=== PATIENT | female | born 1960 | race Caucasian/White ===

== ENCOUNTER 2022-09-14 12:23 | Emergency (ER) | payer MEDICARE, MEDICAID ==
[2022-09-14 13:32] LABS: APPEARANCE,URINE CLEAR; BILIRUBIN,URINE NEGATIVE (NEGATIVE); COLOR,URINE YELLOW; GLUCOSE,URINE NEGATIVE (NEGATIVE); KETONES,URINE NEGATIVE (NEGATIVE); LEUKOCYTE ESTERASE,URINE NEGATIVE (NEGATIVE); NITRITE,URINE NEGATIVE (NEGATIVE); OCCULT BLOOD,URINE NEGATIVE (NEGATIVE); PH,URINE 5.5 (5.0-8.0); PROTEIN,URINE NEGATIVE (NEGATIVE); UROBILINOGEN,URINE 0.2 EU/dL (<2.0)
[2022-09-14 13:41] LABS: HEMATOCRIT 33.7 % (36.0-46.0); HEMOGLOBIN 12.1 g/dL (12.0-16.0); MEAN CORPUSCULAR HEMOGLOBIN 35.3 pg (27.0-32.0); MEAN CORPUSCULAR HGB CONC 35.9 g/dL (31.0-37.0); MEAN CORPUSCULAR VOLUME 98.3 fL (80.0-98.0); RED BLOOD CELL COUNT 3.43 M/uL (4.30-5.90); WHITE BLOOD CELL COUNT,WBC 2.64 K/uL (4.0-11.0)
[2022-09-14 13:50] LABS: BACTERIA,URINE RARE (NEGATIVE); EPITHELIAL CELLS,URINE MODERATE (NONE-FEW); RBC,URINE 0-1 (0-2/HPF); WBC,URINE 0-2 (0-5/HPF)
[2022-09-14 13:54] LABS: PLATELET COUNT,PLT 59 K/uL (150-400)
[2022-09-14 13:57] LABS: A/G RATIO 1.3 (0.9-1.6); ALBUMIN 3.7 g/dL (3.4-5.0); BILIRUBIN TOTAL 0.5 mg/dL (0.2-1.0); CALCIUM 8.8 mg/dL (8.5-10.1); CARBON DIOXIDE,CO2 23.4 mmol/L (21.0-32.0); CREATININE 0.9 mg/dL (0.6-1.0); EST CRCL DRUG DOSING (CG) 53.61 mL/min; MAGNESIUM 1.6 mg/dL (1.8-2.4); PROTEIN TOTAL,TP 6.5 g/dL (6.4-8.2)
[2022-09-14 13:59] LABS: BLAST ABSOLUTE MAN 0; BLASTS PERCENT MAN 1 %; LYMPHOCYTES ABSOLUTE MAN 1.1 (0.6-2.4); LYMPHOCYTES PERCENT MAN 43 % (16.0-40.0); MONOCYTES ABSOLUTE MAN 0.1 (0.0-0.8); MONOCYTES PERCENT MAN 5 % (0.0-15.0); NRBC MANUAL 2 %; POIKILOCYTOSIS 2+ MODERATE; SEG NEUTROPHILS ABSOLUTE MAN 1.3 (1.4-5.7); SEG NEUTROPHILS PERCENT MAN 51 % (48.0-80.0)
[2022-09-14 14:00] LABS: OVALOCYTES 1+ SLIGHT; SCHISTOCYTES 1+ SLIGHT; TEARDROP CELLS FEW
[2022-09-14 14:01] LABS: PLATELET COUNT ESTIMATE DECREASED
[2022-09-14 14:06] LABS: CORONAVIRUS COVID-19 NAA NEGATIVE (NEGATIVE); INFLUENZA A NAA NEGATIVE (NEGATIVE); INFLUENZA B NAA NEGATIVE (NEGATIVE); RESPIRATORY SYNCYTIAL VIR NAA NEGATIVE (NEGATIVE)
[2022-09-14 14:51] LABS: TSH ULTRASENSITIVE 3.2 uIU/mL (0.36-3.74)
== END 2022-09-14 15:20 | disposition home or self-care (01) ==
LOC: MW.ED 12:23
DX: R53.83 Other fatigue (principal); Z88.0 Allergy status to penicillin; Z88.1 Allergy status to other antibiotic agents; Z88.8 Allergy status to other drugs, medicaments and biological substances; Z79.899 Other long term (current) drug therapy; Z20.822 Contact with and (suspected) exposure to COVID-19
CPT/HCPCS: 0241U; 36415; 71045; 80053; 81001; 83605; 83735; 84443; 84484; 85007; 85027; 99284

== ENCOUNTER 2022-12-18 18:30 | Emergency (ER) | payer MEDICARE, MEDICAID ==
[2022-12-18] MEDS ORDERED: Sodium Chloride 0.9% 10 ML Syringe FLUSH PRN (20:06)
[2022-12-18] MEDS ORDERED: Sodium Chloride 0.9% 1,000 ML IV ONE (20:06)
[2022-12-18] MEDS ORDERED: Sodium Chloride 0.9% 2.5 ML Syringe FLUSH PRN (20:06)
[2022-12-18 21:17] LABS: HEMATOCRIT 23.8 % (36.0-46.0); HEMOGLOBIN 7.9 g/dL (12.0-16.0); MEAN CORPUSCULAR HEMOGLOBIN 31.5 pg (27.0-32.0); MEAN CORPUSCULAR HGB CONC 33.2 g/dL (31.0-37.0); MEAN CORPUSCULAR VOLUME 94.8 fL (80.0-98.0); NRBC ABSOLUTE 1 K/uL; PLATELET COUNT,PLT 18 K/uL (150-400); RED BLOOD CELL COUNT 2.51 M/uL (4.30-5.90); WHITE BLOOD CELL COUNT,WBC 2.21 K/uL (4.0-11.0)
[2022-12-18 21:46] LABS: A/G RATIO 0.8 (0.9-1.6); ALBUMIN 2.6 g/dL (3.4-5.0); BILIRUBIN TOTAL 0.5 mg/dL (0.2-1.0); CALCIUM 8.1 mg/dL (8.5-10.1); CARBON DIOXIDE,CO2 26.3 mmol/L (21.0-32.0); CREATININE 1.1 mg/dL (0.6-1.0); EST CRCL DRUG DOSING (CG) 41.94 mL/min; POTASSIUM,K 3.7 mmol/L (3.5-5.1); PROTEIN TOTAL,TP 5.9 g/dL (6.4-8.2)
[2022-12-18 22:24] LABS: APPEARANCE,URINE CLEAR; BILIRUBIN,URINE NEGATIVE (NEGATIVE); COLOR,URINE YELLOW; GLUCOSE,URINE NEGATIVE (NEGATIVE); KETONES,URINE NEGATIVE (NEGATIVE); LEUKOCYTE ESTERASE,URINE SMALL (NEGATIVE); NITRITE,URINE NEGATIVE (NEGATIVE); OCCULT BLOOD,URINE SMALL (NEGATIVE); PH,URINE 6.5 (5.0-8.0); PROTEIN,URINE NEGATIVE (NEGATIVE); UROBILINOGEN,URINE 0.2 EU/dL (<2.0)
[2022-12-18 22:38] LABS: BACTERIA,URINE FEW (NEGATIVE); EPITHELIAL CELLS,URINE RARE (NONE-FEW); RBC,URINE 0-1 (0-2/HPF); WBC,URINE 0-1 (0-5/HPF)
[2022-12-18 22:41] LABS: METAMYELOCYTE ABSOLUTE MAN 0; METAMYELOCYTE PERCENT MAN 1 %; SEG NEUTROPHILS ABSOLUTE MAN 0.8 (1.4-5.7)
[2022-12-18 22:44] LABS: ANISOCYTOSIS 1+
[2022-12-18 22:45] LABS: PLATELET COUNT ESTIMATE DECREASED
[2022-12-18 22:48] LABS: ELLIPTOCYTES 1+ SLIGHT; POIKILOCYTOSIS 2+ MODERATE
[2022-12-18 22:49] LABS: SCHISTOCYTES 1+ SLIGHT
[2022-12-18 22:50] LABS: TEARDROP CELLS 1+ SLIGHT
[2022-12-18 22:57] LABS: LYMPHOCYTES PERCENT MAN 44 % (16.0-40.0); MONOCYTES ABSOLUTE MAN 0.5 (0.0-0.8); MONOCYTES PERCENT MAN 21 % (0.0-15.0); SEG NEUTROPHILS PERCENT MAN 34 % (48.0-80.0)
== END 2022-12-18 23:45 | disposition home or self-care (01) ==
LOC: MW.ED 18:30
DX: D46.9 Myelodysplastic syndrome, unspecified (principal); D64.9 Anemia, unspecified; D69.6 Thrombocytopenia, unspecified; E78.00 Pure hypercholesterolemia, unspecified; Z88.1 Allergy status to other antibiotic agents; I10 Essential (primary) hypertension; Z88.0 Allergy status to penicillin; Z88.8 Allergy status to other drugs, medicaments and biological substances; J44.9 Chronic obstructive pulmonary disease, unspecified; Z20.822 Contact with and (suspected) exposure to COVID-19
CPT/HCPCS: 36415; 71046; 80053; 81001; 83605; 85025; 87040; 87086; 99283; J3490; J7030; U0002

== ENCOUNTER 2022-12-20 00:19 | Inpatient (IN) | payer MEDICARE, MEDICAID ==
[2022-12-20] MEDS ORDERED: Sodium Chloride 0.9% 2.5 ML Syringe FLUSH PRN (01:31)
[2022-12-20] MEDS ORDERED: Sodium Chloride 0.9% 1,000 ML IV ONE (01:31)
[2022-12-20] MEDS ORDERED: Sodium Chloride 0.9% 10 ML Syringe FLUSH PRN (01:31)
[2022-12-20] MEDS ORDERED: Acetaminophen 500 MG Tab PO ONE (02:28)
[2022-12-20 02:32] LABS: HEMATOCRIT 25.1 % (36.0-46.0); HEMOGLOBIN 8.5 g/dL (12.0-16.0); MEAN CORPUSCULAR HGB CONC 33.9 g/dL (31.0-37.0); MEAN CORPUSCULAR VOLUME 94.4 fL (80.0-98.0); NRBC ABSOLUTE 1 K/uL; NRBC PERCENT 8.6 /100WBC; PLATELET COUNT,PLT 17 K/uL (150-400); RED BLOOD CELL COUNT 2.66 M/uL (4.30-5.90); WHITE BLOOD CELL COUNT,WBC 2.26 K/uL (4.0-11.0)
[2022-12-20 02:51] LABS: CORONAVIRUS COVID-19 NAA NEGATIVE (NEGATIVE); INFLUENZA A NAA NEGATIVE (NEGATIVE); INFLUENZA B NAA NEGATIVE (NEGATIVE); RESPIRATORY SYNCYTIAL VIR NAA NEGATIVE (NEGATIVE)
[2022-12-20 03:04] LABS: A/G RATIO 0.8 (0.9-1.6); ALBUMIN 2.8 g/dL (3.4-5.0); BILIRUBIN TOTAL 0.8 mg/dL (0.2-1.0); CALCIUM 8.2 mg/dL (8.5-10.1); CARBON DIOXIDE,CO2 23.4 mmol/L (21.0-32.0); EST CRCL DRUG DOSING (CG) 46.13 mL/min; POTASSIUM,K 3.9 mmol/L (3.5-5.1); PROTEIN TOTAL,TP 6.2 g/dL (6.4-8.2)
[2022-12-20] MEDS ORDERED: Cefepime 2 GM Vial IVPUSH ONE (03:08)
[2022-12-20 03:17] LABS: LACTIC ACID 0.9 mmol/L (0.4-2.0)
[2022-12-20 03:29] LABS: BAND ABSOLUTE MAN 0; BAND PERCENT MAN 2 %; LYMPHOCYTES % ATYPICAL MANUAL 2; LYMPHOCYTES PERCENT MAN 46 % (16.0-40.0); METAMYELOCYTE ABSOLUTE MAN 0; METAMYELOCYTE PERCENT MAN 2 %; MONOCYTES ABSOLUTE MAN 0.3 (0.0-0.8); MONOCYTES PERCENT MAN 14 % (0.0-15.0); SEG NEUTROPHILS ABSOLUTE MAN 0.8 (1.4-5.7); SEG NEUTROPHILS PERCENT MAN 34 % (48.0-80.0)
[2022-12-20 03:30] LABS: ANISOCYTOSIS 1+; POIKILOCYTOSIS 2+ MODERATE; SCHISTOCYTES 1+ SLIGHT
[2022-12-20 03:31] LABS: ELLIPTOCYTES 1+ SLIGHT; PLATELET COUNT ESTIMATE MARKED DEC; TEARDROP CELLS 1+ SLIGHT
[2022-12-20 04:13] LABS: APPEARANCE,URINE SLT CLOUDY; BILIRUBIN,URINE NEGATIVE (NEGATIVE); COLOR,URINE YELLOW; GLUCOSE,URINE NEGATIVE (NEGATIVE); KETONES,URINE TRACE mg/dL (NEGATIVE); LEUKOCYTE ESTERASE,URINE SMALL (NEGATIVE); NITRITE,URINE NEGATIVE (NEGATIVE); OCCULT BLOOD,URINE SMALL (NEGATIVE); PROTEIN,URINE NEGATIVE (NEGATIVE)
[2022-12-20 04:23] LABS: BACTERIA,URINE FEW (NEGATIVE); EPITHELIAL CELLS,URINE FEW (NONE-FEW); MUCUS,URINE LIGHT (NONE-MOD)
[2022-12-20] MEDS ORDERED: Ondansetron 4 MG/2 ML SDV IVPUSH PRN (05:57)
[2022-12-20] MEDS ORDERED: Albuterol/Ipratropium 3.0-0.5 MG/3 ML Neb Soln NEB PRN (05:58)
[2022-12-20] MEDS: atorvaSTATin 40 MG Tab PO SCH (10:10)
[2022-12-20] MEDS: valACYclovir 500 MG Tab PO SCH (10:10)
[2022-12-20] MEDS: Tiotropium Bromide 4 GM Inhalation Spray (2.5mcg/1 dose; 10 doses) INH SCH (10:11)
[2022-12-20] MEDS: BUPROPION 100 MG PO SCH (10:12)
[2022-12-20] MEDS: Losartan 50 MG Tab PO SCH (10:29)
[2022-12-20] MEDS: Metoprolol Succinate 50 MG Tab.ER PO SCH (10:29)
[2022-12-20] MEDS ORDERED: Cefepime 2 GM in Sodium Chloride 0.9% 50 ML IV SCH ×2 (10:31→15:00)
[2022-12-20] MEDS: Cefepime 2 GM in Sodium Chloride 0.9% 50 ML IV SCH ×2 (11:51→18:50)
[2022-12-20 12:19] LABS: HEMATOCRIT 21.6 % (36.0-46.0); HEMOGLOBIN 7.2 g/dL (12.0-16.0); MEAN CORPUSCULAR HEMOGLOBIN 31.4 pg (27.0-32.0); MEAN CORPUSCULAR HGB CONC 33.3 g/dL (31.0-37.0); MEAN CORPUSCULAR VOLUME 94.3 fL (80.0-98.0); NRBC ABSOLUTE 1 K/uL; RED BLOOD CELL COUNT 2.29 M/uL (4.30-5.90); WHITE BLOOD CELL COUNT,WBC 1.89 K/uL (4.0-11.0)
[2022-12-20 12:33] LABS: A/G RATIO 0.8 (0.9-1.6); ALBUMIN 2.3 g/dL (3.4-5.0); BILIRUBIN TOTAL 0.6 mg/dL (0.2-1.0); CALCIUM 7.4 mg/dL (8.5-10.1); CARBON DIOXIDE,CO2 21.2 mmol/L (21.0-32.0); EST CRCL DRUG DOSING (CG) 46.13 mL/min; POTASSIUM,K 3.7 mmol/L (3.5-5.1); PROTEIN TOTAL,TP 5.3 g/dL (6.4-8.2)
[2022-12-20 12:57] LABS: NRBC PERCENT 9.7 /100WBC; PLATELET COUNT,PLT 16 K/uL (150-400)
[2022-12-20 12:59] LABS: BAND ABSOLUTE MAN 0; BAND PERCENT MAN 2 %; LYMPHOCYTES ABSOLUTE MAN 1.1 (0.6-2.4); LYMPHOCYTES PERCENT MAN 57 % (16.0-40.0); MONOCYTES ABSOLUTE MAN 0.3 (0.0-0.8); MONOCYTES PERCENT MAN 16 % (0.0-15.0); SEG NEUTROPHILS ABSOLUTE MAN 0.4 (1.4-5.7); SEG NEUTROPHILS PERCENT MAN 20 % (48.0-80.0)
[2022-12-20 13:00] LABS: BLAST ABSOLUTE MAN 0.1; BLASTS PERCENT MAN 3 %; ELLIPTOCYTES 2+ MODERATE; METAMYELOCYTE ABSOLUTE MAN 0; METAMYELOCYTE PERCENT MAN 2 %; POIKILOCYTOSIS 3+ MARKED; SCHISTOCYTES RARE; TEARDROP CELLS 1+ SLIGHT
[2022-12-20 13:01] LABS: HELMET CELLS FEW; PLATELET COUNT ESTIMATE MARKED DEC
[2022-12-21] MEDS: Cefepime 2 GM in Sodium Chloride 0.9% 50 ML IV SCH ×3 (03:32→18:41)
[2022-12-21 06:31] LABS: HEMATOCRIT 21.8 % (36.0-46.0); HEMOGLOBIN 7.2 g/dL (12.0-16.0); MEAN CORPUSCULAR HEMOGLOBIN 31.4 pg (27.0-32.0); MEAN CORPUSCULAR VOLUME 95.2 fL (80.0-98.0); NRBC ABSOLUTE 1 K/uL; RED BLOOD CELL COUNT 2.29 M/uL (4.30-5.90); WHITE BLOOD CELL COUNT,WBC 1.47 K/uL (4.0-11.0)
[2022-12-21 06:54] LABS: A/G RATIO 0.8 (0.9-1.6); ALBUMIN 2.4 g/dL (3.4-5.0); BILIRUBIN TOTAL 0.8 mg/dL (0.2-1.0); CALCIUM 7.9 mg/dL (8.5-10.1); CARBON DIOXIDE,CO2 21.4 mmol/L (21.0-32.0); CREATININE 0.9 mg/dL (0.6-1.0); EST CRCL DRUG DOSING (CG) 51.26 mL/min; POTASSIUM,K 4.2 mmol/L (3.5-5.1); PROTEIN TOTAL,TP 5.5 g/dL (6.4-8.2)
[2022-12-21 07:02] LABS: PLATELET COUNT,PLT 13 K/uL (150-400)
[2022-12-21 07:03] LABS: BAND ABSOLUTE MAN 0; BAND PERCENT MAN 1 %; SEG NEUTROPHILS ABSOLUTE MAN 0.3 (1.4-5.7); SEG NEUTROPHILS PERCENT MAN 22 % (48.0-80.0)
[2022-12-21 07:04] LABS: LYMPHOCYTES ABSOLUTE MAN 0.9 (0.6-2.4); LYMPHOCYTES PERCENT MAN 58 % (16.0-40.0); METAMYELOCYTE ABSOLUTE MAN 0; METAMYELOCYTE PERCENT MAN 1 %; MONOCYTES ABSOLUTE MAN 0.3 (0.0-0.8); MONOCYTES PERCENT MAN 18 % (0.0-15.0)
[2022-12-21] MEDS: Losartan 50 MG Tab PO SCH (08:15)
[2022-12-21] MEDS: atorvaSTATin 40 MG Tab PO SCH (08:16)
[2022-12-21] MEDS: Metoprolol Succinate 50 MG Tab.ER PO SCH (08:17)
[2022-12-21] MEDS: valACYclovir 500 MG Tab PO SCH (08:17)
[2022-12-21] MEDS: Tiotropium Bromide 4 GM Inhalation Spray (2.5mcg/1 dose; 10 doses) INH SCH (08:27)
[2022-12-21] MEDS: BUPROPION 100 MG PO SCH (08:27)
[2022-12-21] MEDS: Acetaminophen 325 MG Tab PO PRN (19:54)
[2022-12-21 20:18] LABS: HEMATOCRIT 21.9 % (36.0-46.0); HEMOGLOBIN 7.4 g/dL (12.0-16.0); MEAN CORPUSCULAR HGB CONC 33.8 g/dL (31.0-37.0); MEAN CORPUSCULAR VOLUME 94.8 fL (80.0-98.0); NRBC ABSOLUTE 2 K/uL; NRBC PERCENT 15.5 /100WBC; PLATELET COUNT,PLT 14 K/uL (150-400); RED BLOOD CELL COUNT 2.31 M/uL (4.30-5.90); WHITE BLOOD CELL COUNT,WBC 1.43 K/uL (4.0-11.0)
[2022-12-21 21:04] LABS: BAND ABSOLUTE MAN 0.1; BAND PERCENT MAN 9 %; SEG NEUTROPHILS ABSOLUTE MAN 0.1 (1.4-5.7); SEG NEUTROPHILS PERCENT MAN 10 % (48.0-80.0)
[2022-12-21 21:05] LABS: BLAST ABSOLUTE MAN 0.1; BLASTS PERCENT MAN 6 %; LYMPHOCYTES ABSOLUTE MAN 0.6 (0.6-2.4); LYMPHOCYTES PERCENT MAN 43 % (16.0-40.0)
[2022-12-21 21:06] LABS: METAMYELOCYTE ABSOLUTE MAN 0.1; METAMYELOCYTE PERCENT MAN 7 %; MONOCYTES ABSOLUTE MAN 0.3 (0.0-0.8); MONOCYTES PERCENT MAN 20 % (0.0-15.0); MYELOCYTE ABSOLUTE MAN 0.1; MYELOCYTE PERCENT MAN 5 %; NRBC MANUAL 11 %
[2022-12-21 22:09] LABS: BURR CELLS 1+ SLIGHT; ELLIPTOCYTES 1+ SLIGHT; POIKILOCYTOSIS 2+ MODERATE; SCHISTOCYTES 1+ SLIGHT; TEARDROP CELLS 1+ SLIGHT
[2022-12-22] MEDS: Cefepime 2 GM in Sodium Chloride 0.9% 50 ML IV SCH ×3 (03:42→19:26)
[2022-12-22 04:09] LABS: HEMATOCRIT 28.7 % (36.0-46.0); HEMOGLOBIN 9.8 g/dL (12.0-16.0); MEAN CORPUSCULAR HEMOGLOBIN 31.6 pg (27.0-32.0); MEAN CORPUSCULAR HGB CONC 34.1 g/dL (31.0-37.0); MEAN CORPUSCULAR VOLUME 92.6 fL (80.0-98.0); NRBC ABSOLUTE 2 K/uL; NRBC PERCENT 15.4 /100WBC; PLATELET COUNT,PLT 15 K/uL (150-400); WHITE BLOOD CELL COUNT,WBC 1.51 K/uL (4.0-11.0)
[2022-12-22 04:28] LABS: A/G RATIO 0.7 (0.9-1.6); ALBUMIN 2.3 g/dL (3.4-5.0); BILIRUBIN TOTAL 0.9 mg/dL (0.2-1.0); CALCIUM 7.9 mg/dL (8.5-10.1); CARBON DIOXIDE,CO2 22.8 mmol/L (21.0-32.0); CREATININE 0.8 mg/dL (0.6-1.0); EST CRCL DRUG DOSING (CG) 57.67 mL/min; POTASSIUM,K 4.1 mmol/L (3.5-5.1); PROTEIN TOTAL,TP 5.6 g/dL (6.4-8.2)
[2022-12-22 05:00] LABS: SEG NEUTROPHILS ABSOLUTE MAN 0.2 (1.4-5.7); SEG NEUTROPHILS PERCENT MAN 14 % (48.0-80.0)
[2022-12-22 05:01] LABS: BAND ABSOLUTE MAN 0; BAND PERCENT MAN 2 %; LYMPHOCYTES PERCENT MAN 66 % (16.0-40.0)
[2022-12-22 05:06] LABS: METAMYELOCYTE ABSOLUTE MAN 0.1; METAMYELOCYTE PERCENT MAN 4 %; MONOCYTES ABSOLUTE MAN 0.2 (0.0-0.8); MONOCYTES PERCENT MAN 12 % (0.0-15.0); MYELOCYTE ABSOLUTE MAN 0; MYELOCYTE PERCENT MAN 2 %
[2022-12-22] MEDS: Acetaminophen 325 MG Tab PO PRN ×4 (07:10→21:31)
[2022-12-22] MEDS: Losartan 50 MG Tab PO SCH (09:12)
[2022-12-22] MEDS: valACYclovir 500 MG Tab PO SCH (09:14)
[2022-12-22] MEDS: Metoprolol Succinate 50 MG Tab.ER PO SCH (09:15)
[2022-12-22] MEDS: atorvaSTATin 40 MG Tab PO SCH (09:15)
[2022-12-22] MEDS: Tiotropium Bromide 4 GM Inhalation Spray (2.5mcg/1 dose; 10 doses) INH SCH (09:18)
[2022-12-22] MEDS: BUPROPION 100 MG PO SCH (09:23)
[2022-12-22] MEDS: Sulfamethoxazole/Trimethoprim 800-160 MG Tab PO SCH (09:23)
[2022-12-22] MEDS ORDERED: Lidocaine 2% 30 ML, Alum Hydro/Mag Hydro/Simeth XS 30 ML, diphenhydrAMINE 75 MG PO PRN ×3 (09:45)
[2022-12-22] MEDS ORDERED: Docusate Sodium 100 MG Cap PO PRN (09:55)
[2022-12-22 15:54] LABS: HEMATOCRIT 29.9 % (36.0-46.0); HEMOGLOBIN 10.2 g/dL (12.0-16.0); MEAN CORPUSCULAR HEMOGLOBIN 31.4 pg (27.0-32.0); MEAN CORPUSCULAR HGB CONC 34.1 g/dL (31.0-37.0); NRBC ABSOLUTE 1 K/uL; RED BLOOD CELL COUNT 3.25 M/uL (4.30-5.90); WHITE BLOOD CELL COUNT,WBC 1.52 K/uL (4.0-11.0)
[2022-12-22 16:13] LABS: NRBC PERCENT 13.7 /100WBC; PLATELET COUNT,PLT 12 K/uL (150-400)
[2022-12-22 16:24] LABS: BAND ABSOLUTE MAN 0; BAND PERCENT MAN 2 %; MONOCYTES ABSOLUTE MAN 0.3 (0.0-0.8); MONOCYTES PERCENT MAN 23 % (0.0-15.0); MYELOCYTE ABSOLUTE MAN 0; SEG NEUTROPHILS ABSOLUTE MAN 0.3 (1.4-5.7); SEG NEUTROPHILS PERCENT MAN 21 % (48.0-80.0)
[2022-12-22 16:25] LABS: BLAST ABSOLUTE MAN 0; BLASTS PERCENT MAN 3 %; LYMPHOCYTES ABSOLUTE MAN 0.7 (0.6-2.4); LYMPHOCYTES PERCENT MAN 48 % (16.0-40.0); METAMYELOCYTE ABSOLUTE MAN 0; METAMYELOCYTE PERCENT MAN 1 %; MYELOCYTE PERCENT MAN 2 %; POIKILOCYTOSIS 2+ MODERATE
[2022-12-22 16:26] LABS: ELLIPTOCYTES 1+ SLIGHT; HELMET CELLS 1+ SLIGHT; PLATELET COUNT ESTIMATE MARKED DEC; SCHISTOCYTES FEW; TEARDROP CELLS FEW
[2022-12-23] MEDS ORDERED: Cefepime 2 GM Vial ONE (02:52)
[2022-12-23] MEDS: Acetaminophen 325 MG Tab PO PRN ×2 (02:58→07:08)
[2022-12-23] MEDS: Cefepime 2 GM in Sodium Chloride 0.9% 50 ML IV SCH ×3 (03:04→13:56)
[2022-12-23 06:05] LABS: HEMATOCRIT 30.1 % (36.0-46.0); HEMOGLOBIN 10.3 g/dL (12.0-16.0); MEAN CORPUSCULAR HEMOGLOBIN 31.4 pg (27.0-32.0); MEAN CORPUSCULAR HGB CONC 34.2 g/dL (31.0-37.0); NRBC ABSOLUTE 2 K/uL; PLATELET COUNT,PLT 13 K/uL (150-400); RED BLOOD CELL COUNT 3.28 M/uL (4.30-5.90)
[2022-12-23 06:36] LABS: A/G RATIO 0.8 (0.9-1.6); ALBUMIN 2.5 g/dL (3.4-5.0); BILIRUBIN TOTAL 0.9 mg/dL (0.2-1.0); CALCIUM 7.9 mg/dL (8.5-10.1); CARBON DIOXIDE,CO2 18.7 mmol/L (21.0-32.0); CREATININE 0.8 mg/dL (0.6-1.0); EST CRCL DRUG DOSING (CG) 57.67 mL/min; POTASSIUM,K 4.3 mmol/L (3.5-5.1); PROTEIN TOTAL,TP 5.7 g/dL (6.4-8.2)
[2022-12-23 07:10] LABS: BAND ABSOLUTE MAN 0; BAND PERCENT MAN 1 %; BLAST ABSOLUTE MAN 0; BLASTS PERCENT MAN 2 %; LYMPHOCYTES ABSOLUTE MAN 0.8 (0.6-2.4); LYMPHOCYTES PERCENT MAN 69 % (16.0-40.0); MONOCYTES ABSOLUTE MAN 0.2 (0.0-0.8); MONOCYTES PERCENT MAN 13 % (0.0-15.0); SEG NEUTROPHILS ABSOLUTE MAN 0.2 (1.4-5.7); SEG NEUTROPHILS PERCENT MAN 15 % (48.0-80.0)
[2022-12-23 07:12] LABS: MEAN CORPUSCULAR VOLUME 91.8 fL (80.0-98.0)
[2022-12-23] MEDS: Losartan 50 MG Tab PO SCH (10:00)
[2022-12-23] MEDS: Metoprolol Succinate 50 MG Tab.ER PO SCH (10:02)
[2022-12-23] MEDS: atorvaSTATin 40 MG Tab PO SCH (10:03)
[2022-12-23] MEDS: valACYclovir 500 MG Tab PO SCH (10:04)
[2022-12-23] MEDS: Tiotropium Bromide 4 GM Inhalation Spray (2.5mcg/1 dose; 10 doses) INH SCH (10:05)
[2022-12-23] MEDS: BUPROPION 100 MG PO SCH (10:06)
[2022-12-23] MEDS: Phenol 1.4% Oral Spray 177 ML Bottle MUCMEM PRN ×3 (11:00→19:50)
[2022-12-23] MEDS: Acetaminophen 500 MG Tab PO PRN ×2 (11:55→18:01)
[2022-12-24] MEDS: Phenol 1.4% Oral Spray 177 ML Bottle MUCMEM PRN ×2 (01:17→13:04)
[2022-12-24 07:16] LABS: A/G RATIO 0.8 (0.9-1.6); ALBUMIN 2.7 g/dL (3.4-5.0); BILIRUBIN TOTAL 0.9 mg/dL (0.2-1.0); CALCIUM 7.9 mg/dL (8.5-10.1); CARBON DIOXIDE,CO2 21.1 mmol/L (21.0-32.0); CREATININE 0.8 mg/dL (0.6-1.0); EST CRCL DRUG DOSING (CG) 57.67 mL/min; POTASSIUM,K 4.2 mmol/L (3.5-5.1); PROTEIN TOTAL,TP 6.2 g/dL (6.4-8.2)
[2022-12-24 08:16] LABS: HEMATOCRIT 31.5 % (36.0-46.0); HEMOGLOBIN 10.9 g/dL (12.0-16.0); MEAN CORPUSCULAR HEMOGLOBIN 31.6 pg (27.0-32.0); MEAN CORPUSCULAR HGB CONC 34.6 g/dL (31.0-37.0); MEAN CORPUSCULAR VOLUME 91.3 fL (80.0-98.0); NRBC ABSOLUTE 1 K/uL; RED BLOOD CELL COUNT 3.45 M/uL (4.30-5.90); WHITE BLOOD CELL COUNT,WBC 1.51 K/uL (4.0-11.0)
[2022-12-24 08:17] LABS: NRBC PERCENT 13.3 /100WBC; PLATELET COUNT,PLT 12 K/uL (150-400)
[2022-12-24 08:19] LABS: SEG NEUTROPHILS ABSOLUTE MAN 0.3 (1.4-5.7); SEG NEUTROPHILS PERCENT MAN 21 % (48.0-80.0)
[2022-12-24 08:20] LABS: BAND ABSOLUTE MAN 0; BAND PERCENT MAN 2 %; BLAST ABSOLUTE MAN 0.1; BLASTS PERCENT MAN 7 %; LYMPHOCYTES ABSOLUTE MAN 0.7 (0.6-2.4); LYMPHOCYTES PERCENT MAN 48 % (16.0-40.0); METAMYELOCYTE ABSOLUTE MAN 0; METAMYELOCYTE PERCENT MAN 2 %; MONOCYTES ABSOLUTE MAN 0.3 (0.0-0.8); MYELOCYTE ABSOLUTE MAN 0; MYELOCYTE PERCENT MAN 1 %
[2022-12-24] MEDS: BUPROPION 100 MG PO SCH (08:20)
[2022-12-24] MEDS: Losartan 50 MG Tab PO SCH (08:20)
[2022-12-24 08:21] LABS: ELLIPTOCYTES 1+ SLIGHT; MONOCYTES PERCENT MAN 19 % (0.0-15.0); POIKILOCYTOSIS 2+ MODERATE; SCHISTOCYTES 1+ SLIGHT
[2022-12-24 08:22] LABS: PLATELET COUNT ESTIMATE MARKED DEC
[2022-12-24] MEDS: atorvaSTATin 40 MG Tab PO SCH (08:22)
[2022-12-24] MEDS: Metoprolol Succinate 50 MG Tab.ER PO SCH (08:23)
[2022-12-24] MEDS: valACYclovir 500 MG Tab PO SCH (08:23)
[2022-12-24] MEDS: Tiotropium Bromide 4 GM Inhalation Spray (2.5mcg/1 dose; 10 doses) INH SCH (08:24)
[2022-12-24] MEDS: Sulfamethoxazole/Trimethoprim 800-160 MG Tab PO SCH (09:50)
[2022-12-24] MEDS: Benzocaine 20% Topical Spray UD MUCMEM PRN ×2 (09:50→16:33)
[2022-12-24] MEDS: Nystatin Susp 100,000 Unit/ML 5 ML UD Cup PO SCH ×2 (11:33→19:33)
[2022-12-24] MEDS ORDERED: Sodium Chloride 0.9% 500 ML IV SCH (18:00)
[2022-12-24] MEDS: Sodium Chloride 0.9% 1,000 ML IV SCH ×2 (18:10→21:05)
[2022-12-24] MEDS: Acetaminophen 500 MG Tab PO PRN (19:33)
[2022-12-24] MEDS ORDERED: Sodium Chloride 0.9% 1,000 ML IV SCH (21:00)
[2022-12-24 21:12] LABS: HEMATOCRIT 29.7 % (36.0-46.0); HEMOGLOBIN 10.2 g/dL (12.0-16.0); MEAN CORPUSCULAR HEMOGLOBIN 31.4 pg (27.0-32.0); MEAN CORPUSCULAR HGB CONC 34.3 g/dL (31.0-37.0); MEAN CORPUSCULAR VOLUME 91.4 fL (80.0-98.0); NRBC ABSOLUTE 1 K/uL; NRBC PERCENT 9.5 /100WBC; RED BLOOD CELL COUNT 3.25 M/uL (4.30-5.90); WHITE BLOOD CELL COUNT,WBC 1.45 K/uL (4.0-11.0)
[2022-12-24 21:37] LABS: A/G RATIO 0.8 (0.9-1.6); ALBUMIN 2.5 g/dL (3.4-5.0); BILIRUBIN TOTAL 0.8 mg/dL (0.2-1.0); CALCIUM 7.3 mg/dL (8.5-10.1); CARBON DIOXIDE,CO2 20.3 mmol/L (21.0-32.0); CREATININE 0.9 mg/dL (0.6-1.0); EST CRCL DRUG DOSING (CG) 51.26 mL/min; POTASSIUM,K 3.9 mmol/L (3.5-5.1); PROTEIN TOTAL,TP 5.7 g/dL (6.4-8.2)
[2022-12-24 21:39] LABS: LACTIC ACID 0.8 mmol/L (0.4-2.0)
[2022-12-24 22:25] LABS: PLATELET COUNT,PLT 9 K/uL (150-400)
[2022-12-24 22:27] LABS: BAND ABSOLUTE MAN 0; BAND PERCENT MAN 1 %; LYMPHOCYTES ABSOLUTE MAN 0.6 (0.6-2.4); LYMPHOCYTES PERCENT MAN 41 % (16.0-40.0); METAMYELOCYTE ABSOLUTE MAN 0; METAMYELOCYTE PERCENT MAN 3 %; MONOCYTES ABSOLUTE MAN 0.3 (0.0-0.8); MONOCYTES PERCENT MAN 19 % (0.0-15.0); MYELOCYTE ABSOLUTE MAN 0; MYELOCYTE PERCENT MAN 2 %; SEG NEUTROPHILS ABSOLUTE MAN 0.4 (1.4-5.7); SEG NEUTROPHILS PERCENT MAN 28 % (48.0-80.0)
[2022-12-24 22:28] LABS: BLAST ABSOLUTE MAN 0.1; BLASTS PERCENT MAN 6 %; ELLIPTOCYTES 1+ SLIGHT; POIKILOCYTOSIS 2+ MODERATE; SCHISTOCYTES 1+ SLIGHT
[2022-12-25] MEDS: Nystatin Susp 100,000 Unit/ML 5 ML UD Cup PO SCH ×5 (00:18→23:16)
[2022-12-25] MEDS: Benzocaine 20% Topical Spray UD MUCMEM PRN ×3 (00:20→23:24)
[2022-12-25 03:01] LABS: HEMATOCRIT 30.1 % (36.0-46.0); HEMOGLOBIN 10.2 g/dL (12.0-16.0); MEAN CORPUSCULAR HEMOGLOBIN 31.1 pg (27.0-32.0); MEAN CORPUSCULAR HGB CONC 33.9 g/dL (31.0-37.0); MEAN CORPUSCULAR VOLUME 91.8 fL (80.0-98.0); NRBC ABSOLUTE 2 K/uL; NRBC PERCENT 17.4 /100WBC; RED BLOOD CELL COUNT 3.28 M/uL (4.30-5.90); WHITE BLOOD CELL COUNT,WBC 1.37 K/uL (4.0-11.0)
[2022-12-25 03:38] LABS: PLATELET COUNT,PLT 14 K/uL (150-400)
[2022-12-25 03:39] LABS: BAND ABSOLUTE MAN 0; SEG NEUTROPHILS ABSOLUTE MAN 0.3 (1.4-5.7); SEG NEUTROPHILS PERCENT MAN 20 % (48.0-80.0)
[2022-12-25 03:41] LABS: LYMPHOCYTES ABSOLUTE MAN 0.7 (0.6-2.4); LYMPHOCYTES PERCENT MAN 54 % (16.0-40.0); METAMYELOCYTE ABSOLUTE MAN 0; MONOCYTES ABSOLUTE MAN 0.2 (0.0-0.8); MONOCYTES PERCENT MAN 18 % (0.0-15.0); MYELOCYTE ABSOLUTE MAN 0
[2022-12-25 03:42] LABS: BLAST ABSOLUTE MAN 0; BLASTS PERCENT MAN 3 %; METAMYELOCYTE PERCENT MAN 2 %; NRBC MANUAL 7 %
[2022-12-25 03:43] LABS: BAND PERCENT MAN 2 %; MYELOCYTE PERCENT MAN 1 %
[2022-12-25 03:50] LABS: POIKILOCYTOSIS 2+ MODERATE
[2022-12-25 03:51] LABS: ELLIPTOCYTES 1+ SLIGHT; SCHISTOCYTES 1+ SLIGHT
[2022-12-25] MEDS: Phenol 1.4% Oral Spray 177 ML Bottle MUCMEM PRN ×4 (04:13→15:04)
[2022-12-25] MEDS: Acetaminophen 500 MG Tab PO PRN ×3 (04:16→20:47)
[2022-12-25 06:19] LABS: HEMATOCRIT 28.1 % (36.0-46.0); HEMOGLOBIN 9.6 g/dL (12.0-16.0); MEAN CORPUSCULAR HEMOGLOBIN 31.4 pg (27.0-32.0); MEAN CORPUSCULAR HGB CONC 34.2 g/dL (31.0-37.0); MEAN CORPUSCULAR VOLUME 91.8 fL (80.0-98.0); NRBC ABSOLUTE 2 K/uL; NRBC PERCENT 15.2 /100WBC; RED BLOOD CELL COUNT 3.06 M/uL (4.30-5.90); WHITE BLOOD CELL COUNT,WBC 1.28 K/uL (4.0-11.0)
[2022-12-25 06:48] LABS: A/G RATIO 0.7 (0.9-1.6); ALBUMIN 2.3 g/dL (3.4-5.0); BILIRUBIN TOTAL 0.9 mg/dL (0.2-1.0); CALCIUM 7.3 mg/dL (8.5-10.1); CARBON DIOXIDE,CO2 20.7 mmol/L (21.0-32.0); CREATININE 0.9 mg/dL (0.6-1.0); EST CRCL DRUG DOSING (CG) 51.26 mL/min; POTASSIUM,K 3.9 mmol/L (3.5-5.1); PROTEIN TOTAL,TP 5.6 g/dL (6.4-8.2)
[2022-12-25 07:13] LABS: PLATELET COUNT,PLT 9 K/uL (150-400)
[2022-12-25 07:15] LABS: BAND ABSOLUTE MAN 0; BAND PERCENT MAN 1 %; LYMPHOCYTES ABSOLUTE MAN 0.7 (0.6-2.4); LYMPHOCYTES PERCENT MAN 57 % (16.0-40.0); METAMYELOCYTE ABSOLUTE MAN 0; METAMYELOCYTE PERCENT MAN 3 %; MONOCYTES ABSOLUTE MAN 0.2 (0.0-0.8); MONOCYTES PERCENT MAN 12 % (0.0-15.0); SEG NEUTROPHILS ABSOLUTE MAN 0.2 (1.4-5.7); SEG NEUTROPHILS PERCENT MAN 16 % (48.0-80.0)
[2022-12-25 07:16] LABS: MYELOCYTE ABSOLUTE MAN 0; MYELOCYTE PERCENT MAN 2 %
[2022-12-25 07:17] LABS: BLAST ABSOLUTE MAN 0.1; BLASTS PERCENT MAN 9 %; ELLIPTOCYTES 1+ SLIGHT; POIKILOCYTOSIS 2+ MODERATE
[2022-12-25 07:18] LABS: SCHISTOCYTES 1+ SLIGHT
[2022-12-25] MEDS: Losartan 50 MG Tab PO SCH (10:07)
[2022-12-25] MEDS: valACYclovir 500 MG Tab PO SCH (10:09)
[2022-12-25] MEDS: Metoprolol Succinate 50 MG Tab.ER PO SCH (10:10)
[2022-12-25] MEDS: atorvaSTATin 40 MG Tab PO SCH (10:10)
[2022-12-25] MEDS: Tiotropium Bromide 4 GM Inhalation Spray (2.5mcg/1 dose; 10 doses) INH SCH (10:12)
[2022-12-25] MEDS: BUPROPION 100 MG PO SCH (10:13)
[2022-12-25] MEDS ORDERED: VANCOmycin 2 GM/400 ML 2 GM in Premix Bag 1 BAG IV ONE (11:00)
[2022-12-25] MEDS: Cefepime 2 GM in Sodium Chloride 0.9% 50 ML IV SCH ×2 (11:16→16:47)
[2022-12-25 16:59] LABS: APPEARANCE,URINE SLT CLOUDY; BILIRUBIN,URINE NEGATIVE (NEGATIVE); COLOR,URINE YELLOW; GLUCOSE,URINE NEGATIVE (NEGATIVE); KETONES,URINE NEGATIVE (NEGATIVE); LEUKOCYTE ESTERASE,URINE TRACE (NEGATIVE); NITRITE,URINE NEGATIVE (NEGATIVE); OCCULT BLOOD,URINE TRACE-INTACT (NEGATIVE); PROTEIN,URINE NEGATIVE (NEGATIVE); UROBILINOGEN,URINE 0.2 EU/dL (<2.0)
[2022-12-25 17:17] LABS: BACTERIA,URINE RARE (NEGATIVE); EPITHELIAL CELLS,URINE FEW (NONE-FEW)
[2022-12-25] MEDS ORDERED: Sodium Chloride 0.9% 1,000 ML IV SCH (21:04)
[2022-12-26] MEDS: Cefepime 2 GM in Sodium Chloride 0.9% 50 ML IV SCH ×2 (01:39→10:24)
[2022-12-26] MEDS: Acetaminophen 500 MG Tab PO PRN (02:57)
[2022-12-26 05:44] LABS: HEMATOCRIT 28.9 % (36.0-46.0); HEMOGLOBIN 9.6 g/dL (12.0-16.0); MEAN CORPUSCULAR HEMOGLOBIN 30.6 pg (27.0-32.0); MEAN CORPUSCULAR HGB CONC 33.2 g/dL (31.0-37.0); NRBC ABSOLUTE 2 K/uL; NRBC PERCENT 19.9 /100WBC; RED BLOOD CELL COUNT 3.14 M/uL (4.30-5.90); WHITE BLOOD CELL COUNT,WBC 1.04 K/uL (4.0-11.0)
[2022-12-26] MEDS: Nystatin Susp 100,000 Unit/ML 5 ML UD Cup PO SCH (05:58)
[2022-12-26 06:16] LABS: A/G RATIO 0.8 (0.9-1.6); ALBUMIN 2.2 g/dL (3.4-5.0); BILIRUBIN TOTAL 0.9 mg/dL (0.2-1.0); CARBON DIOXIDE,CO2 20.4 mmol/L (21.0-32.0); CREATININE 1.1 mg/dL (0.6-1.0); EST CRCL DRUG DOSING (CG) 41.94 mL/min; POTASSIUM,K 3.5 mmol/L (3.5-5.1); PROTEIN TOTAL,TP 5.1 g/dL (6.4-8.2)
[2022-12-26 06:44] LABS: PLATELET COUNT,PLT 7 K/uL (150-400)
[2022-12-26 06:49] LABS: BAND ABSOLUTE MAN 0; BAND PERCENT MAN 3 %; SEG NEUTROPHILS ABSOLUTE MAN 0.3 (1.4-5.7); SEG NEUTROPHILS PERCENT MAN 26 % (48.0-80.0)
[2022-12-26 06:50] LABS: BASOPHILS PERCENT MAN 2 % (0.0-1.5); BLAST ABSOLUTE MAN 0.1; BLASTS PERCENT MAN 11 %; ELLIPTOCYTES 1+ SLIGHT; LYMPHOCYTES ABSOLUTE MAN 0.4 (0.6-2.4); LYMPHOCYTES PERCENT MAN 35 % (16.0-40.0); METAMYELOCYTE ABSOLUTE MAN 0; METAMYELOCYTE PERCENT MAN 3 %; MONOCYTES ABSOLUTE MAN 0.2 (0.0-0.8); MONOCYTES PERCENT MAN 15 % (0.0-15.0); MYELOCYTE ABSOLUTE MAN 0.1; MYELOCYTE PERCENT MAN 5 %; POIKILOCYTOSIS 2+ MODERATE; SCHISTOCYTES 1+ SLIGHT
[2022-12-26] MEDS ORDERED: Sodium Chloride 0.9% 1,000 ML IV SCH ×2 (08:30)
[2022-12-26] MEDS: Losartan 50 MG Tab PO SCH (08:35)
[2022-12-26] MEDS: atorvaSTATin 40 MG Tab PO SCH (08:51)
[2022-12-26] MEDS: valACYclovir 500 MG Tab PO SCH (08:51)
[2022-12-26] MEDS: Sulfamethoxazole/Trimethoprim 800-160 MG Tab PO SCH (08:54)
[2022-12-26] MEDS: Tiotropium Bromide 4 GM Inhalation Spray (2.5mcg/1 dose; 10 doses) INH SCH (08:55)
[2022-12-26] MEDS: BUPROPION 100 MG PO SCH (10:21)
[2022-12-26] MEDS: Metoprolol Succinate 50 MG Tab.ER PO SCH (10:21)
== END 2022-12-26 10:40 | DRG 871 ==
LOC: MW.ED 00:19 → MW.MS 04:30 → OBSVTOIN 12-21 12:05 → MW.MS 12-21 13:27 → INTOOBSV 12-21 13:28 → OBSVTOIN 12-21 13:28 → UNDODISIN 12-26 10:40
PROVIDERS: ADMIT Family Medicine; ATTEND Family Medicine
PROC: 30233N1 Transfusion of Nonautologous Red Blood Cells into Peripheral Vein, Percutaneous Approach (ICD-10-PCS; principal; 2022-12-21)
PROC: 30233N1 Transfusion of Nonautologous Red Blood Cells into Peripheral Vein, Percutaneous Approach (ICD-10-PCS; 2022-12-25)
DX: A41.9 Sepsis, unspecified organism (principal); D61.810 Antineoplastic chemotherapy induced pancytopenia; C92.01 Acute myeloblastic leukemia, in remission; N39.0 Urinary tract infection, site not specified; D69.6 Thrombocytopenia, unspecified; D70.9 Neutropenia, unspecified; R50.81 Fever presenting with conditions classified elsewhere; R65.20 Severe sepsis without septic shock; D70.1 Agranulocytosis secondary to cancer chemotherapy; E86.0 Dehydration; D46.9 Myelodysplastic syndrome, unspecified; Z20.822 Contact with and (suspected) exposure to COVID-19; J44.9 Chronic obstructive pulmonary disease, unspecified; F41.9 Anxiety disorder, unspecified; F32.A Depression, unspecified; T45.1X5A Adverse effect of antineoplastic and immunosuppressive drugs, initial encounter; Z88.1 Allergy status to other antibiotic agents; Z88.0 Allergy status to penicillin; Z88.8 Allergy status to other drugs, medicaments and biological substances; I10 Essential (primary) hypertension; Z86.16 Personal history of COVID-19; Z90.49 Acquired absence of other specified parts of digestive tract; E78.00 Pure hypercholesterolemia, unspecified; Z79.899 Other long term (current) drug therapy
CPT/HCPCS: 0241U; 36415; 36430; 71046; 80053; 80202; 81001; 83605; 85025; 86850; 86900; 86901; 86920; 87040; 87086; 96361; 96365; 96376; 99284; 36410; 96374; 99223; 99232; 99233; 99239; A9270-GY; G0378; J0692; J3370; J3490; J7030; J7050; P9016; P9034

== ENCOUNTER 2023-01-28 10:23 | Emergency (ER) | payer MEDICARE, MEDICAID ==
[2023-01-28] MEDS ORDERED: Sodium Chloride 0.9% 2.5 ML Syringe FLUSH PRN (11:05)
[2023-01-28] MEDS ORDERED: Sodium Chloride 0.9% 10 ML Syringe FLUSH PRN (11:05)
[2023-01-28 11:54] LABS: HEMATOCRIT 26.1 % (37.0-47.0); HEMOGLOBIN 9.4 g/dL (12.0-16.0); MEAN CORPUSCULAR HEMOGLOBIN 28.7 pg (28.0-32.0); MEAN CORPUSCULAR VOLUME 79.8 fL (83.0-99.0); NRBC ABSOLUTE 0.42 K/uL (0.00-0.02); RED BLOOD CELL COUNT 3.27 M/uL (4.10-5.30)
[2023-01-28 12:31] LABS: NRBC PERCENT 102.4 /100WBC (0.0-0.2)
[2023-01-28 12:32] LABS: PLATELET COUNT,PLT 26 K/uL (150-400); WHITE BLOOD CELL COUNT,WBC 0.41 K/uL (3.9-11.3)
[2023-01-28 12:34] LABS: A/G RATIO 0.7 (0.9-1.6); ALBUMIN 2.6 g/dL (3.4-5.0); BILIRUBIN TOTAL 2.3 mg/dL (0.2-1.0); CALCIUM 8.1 mg/dL (8.5-10.1); CARBON DIOXIDE,CO2 25.9 mmol/L (21.0-32.0); CREATININE 0.8 mg/dL (0.6-1.0); EST CRCL DRUG DOSING (CG) 60.31 mL/min; POTASSIUM,K 3.5 mmol/L (3.5-5.1); PROTEIN TOTAL,TP 6.2 g/dL (6.4-8.2)
[2023-01-28 13:16] LABS: CORONAVIRUS COVID-19 NAA NEGATIVE (NEGATIVE); INFLUENZA A NAA NEGATIVE (NEGATIVE); INFLUENZA B NAA NEGATIVE (NEGATIVE); RESPIRATORY SYNCYTIAL VIR NAA NEGATIVE (NEGATIVE)
== END 2023-01-28 13:57 | disposition home or self-care (01) ==
LOC: MW.ED 10:23
DX: D70.9 Neutropenia, unspecified (principal); R50.81 Fever presenting with conditions classified elsewhere; I10 Essential (primary) hypertension; J44.9 Chronic obstructive pulmonary disease, unspecified; E78.00 Pure hypercholesterolemia, unspecified; Z88.0 Allergy status to penicillin; Z88.8 Allergy status to other drugs, medicaments and biological substances
CPT/HCPCS: 0241U; 36415; 71046; 80053; 83605; 83690; 83735; 85025; 86850; 86870; 86900; 86901; 87040; 99283; J3490